=== PATIENT | male | born 2000 | race Caucasian/White ===

== ENCOUNTER 2018-05-05 04:23 | Emergency (ER) | payer OTHER, SELFPAY ==
[2018-05-05 04:24] VITALS: BP 177/63; PULSE 68; RESP 16; TEMP 36.8; O2SAT 100; BMI 24.8
--- NOTE | 2018-05-05 04:44 | CT_ITS ---
STUDY: CT ABDOMEN AND PELVIS WITH CONTRAST REASON FOR EXAM: Male, 17 years old. Lower abdominal pain RADIATION DOSAGE (If Supplied By Facility): CTDIvol = ( 9.48 ) mGy, DLP = ( 458.48 ) mGycm TECHNIQUE: Transaxial images were obtained from the dome of the diaphragm to the symphysis pubis without oral contrast. 100CC ml of Isovue 300 contrast was administered. Sagittal and coronal images were reconstructed. Individualized dose optimization techniques were used for this CT. COMPARISON: None. FINDINGS: The lung bases are clear. The liver is normal. No dilated intrahepatic biliary radicles. The gallbladder is normal with no calcifications within it. There is no pericholecystic fluid collection or streakiness The spleen is normal. The pancreas is normal. Both adrenals are normal. The kidneys are normal with no masses, calculi or hydronephrosis The stomach is normal. There is no bowel distention, acute appendicitis or diverticulitis. No constricting lesions are seen in large bowel. The abdominal wall is intact with no hernias. There is no ascites or any free intraperitoneal air. No indication of epiploic appendagitis The vascular structures in the retroperitoneum are normal. There is no retrocrural, retroperitoneal or mesenteric adenopathy. The bones and joints are normal. The urinary bladder is normal.--The prostate is normal. There is no inguinal or pelvic adenopathy. There is no inguinal hernia. . CT/Abdomen/Pelvis WITH Contrast IMPRESSION: No acute findings in the abdomen or pelvis. Specifically there is no acute appendicitis or diverticulitis Electronically Signed: Donald Salamanca MD at 7:15 EST Tel , Service support ,
[2018-05-05] MEDS: Ondansetron 4 MG/2 ML Vial IV (04:52)
[2018-05-05] MEDS: Ketorolac 30 MG/ML Syringe IV (04:53)
[2018-05-05 04:56] LABS: Absolute Lymphocyte Count 2.08 X10^3/ul (0.83-4.51); Absolute Neutrophil Count 5.9 X10^3/uL (2.0-7.7); Basophil# 0.05 X10^3/uL; Basophil% 0.6 % (0-1); Eosinophil# 0.03 X10^3/uL; Eosinophils% 0.4 % (0-5); Hematocrit 43.8 % (40-54); Lymphocyte # 2.08 X10^3/ul (4.0); Lymphocyte % 24.4 % (19-41); Mean Corp Hgb Conc 34.2 g/gl (32-36); Mean Corpuscular Hgb 30.2 pg (27.0-32.0); Mean Corpuscular Volume 88.3 fL (80-94); Mean Platelet Vol. 9.4 fl (6.2-12.0); Monocyte% 5.9 % (0-10); Neutrophil # 5.87 X10^3/uL (2.7-7.7); Neutrophil % 68.6 % (47-70); Platelet Count 336 K/mm3 (150-450); RBC Distribution Width CV 12.8 % (11.6-14.6); Red Blood Count 4.96 M/mm3 (4.6-6.2); White Blood Count 8.5 K/mm3 (4.4-11.0)
[2018-05-05 04:57] LABS: POSITIVE COUNT NO; POSITIVE DIFFERENTIAL NO; POSITIVE MORPHOLOGY NO
[2018-05-05 05:08] LABS: ALB/GLOB Ratio 1.3 RATIO (0.9-2.4); AST(SGOT) 28 U/L (15-37); Alanine Aminotransfer ALT/SGPT 33 U/L (16-61); Albumin, Serum 4.4 g/dL (3.2-5.0); Alkaline Phosphatase 81 U/L (45-117); Anion Gap 10 (5-15); BUN 18 mg/dL (7-18); Calcium,Total 9.4 mg/dL (8.5-10.1); Chloride 104 mmol/L (98-107); Creatinine, Serum 1.06 mg/dL (0.70-1.30); EST Glomerular Filtration Rate 95 mL/min (>60); Est Glom Filt Rate - Afr Amer 115 mL/min (>60); Estimated Creatinine Clearance 112.09 ml/min; Globulin 3.4 g/dL (2.2-4.2); Glucose 119 mg/dL (74-106); Lipase 77 U/L (73-393); Potassium 3.8 mmol/L (3.5-5.1); Protein, Total 7.8 g/dL (6.4-8.2); Sodium Level 140 mmol/L (136-145)
[2018-05-05 05:15] VITALS: BP 181/63
[2018-05-05 05:30] LABS: Red Blood Cells-Urine 0 SEEN /hpf (0-5); Squamous Epithelial Cells - UA 0 SEEN /hpf (0-5); White Blood Cells 0 SEEN /hpf (0-5)
[2018-05-05 05:50] LABS: Color, Urine Yellow (Yellow); Glucose, Dipstick Normal (Normal); Ketone-Dipstick Negative (Negative); Leukocyte Esterase-Dipstick Negative /ul (Negative); Nitrite-Dipstick Negative (Negative); Occult Blood-Urine Negative /ul (Negative); Protein-Dipstick Negative (Negative); Urine Bilirubin Dipstick Negative (Negative); Urine Clarity Clear (Clear); Urine Urobilinogen Normal (Normal)
[2018-05-05 05:55] LABS: Bacteria RARE /hpf (None Seen); Mucous, Urine 1+ /hpf (<or=2+)
--- NOTE | 2018-05-05 06:36 | ED.DCSUM_ITS ---
- ER Visit Summary Date of Service: 05/05/18 Chief Complaint: Abdominal pain History of Present Illness: The patient is a 17 M who presents with abdominal pain. It began yesterday. It initially began in the afternoon or evening. However it acutely worsened in the last 4-5 hours. He describes his pain as dull. It was initially diffuse but has become more focal near the umbilicus. He does report decreased appetite yesterday. He had a normal bowel movement in the evening. No constipation or diarrhea. He complains of nausea without vomiting. He reports subjective fever but did not check his temperature. No history of prior similar symptoms. No history of abdominal surgery. Physical Examination: Afebrile hypertensive but vitals otherwise unremarkable She does appear uncomfortable Moist mucous membranes Heart regular rate and rhythm Lungs are clear Abdomen soft with minimal mid lower abdominal tenderness no guarding no rebound Test Results: CBC CMP lipase urinalysis all normal. CT of the abdomen and pelvis is pending at the time of this dictation. Emergency Department Course and Treatment: Patient was treated here with IV fluids Toradol and Zofran. He feels much better on reevaluation and is resting comfortably. Patient signed out to the oncoming physician for follow-up on results. If CT of the abdomen is normal I do believe the patient can be discharged home. I discussed this with the patient and family as well as return precautions. Treatment Plan: [] Disposition: Pending CT results Impression: Abdominal pain This note was generated with [employer] dictation software. It may contain incorrect words, spelling, and punctuation that were not noted in review of the chart prior to signing ED Disposition - Plan for ED Patient: Chief Complaint: Abd Pain Referrals: Mg Quijano III, MD [Primary Care Provider] -
[2018-05-05 07:09] VITALS: BP 175/63; PULSE 78; RESP 16; O2SAT 98
--- NOTE | 2018-05-05 07:09 | ED.DEP ---
ED Disposition - Plan for ED Patient: Chief Complaint: Abd Pain Instructions: ED Abdominal Pain Unkn Cause Male Referrals: Mg Quijano III, MD [Primary Care Provider] -
[2018-05-05 07:42] VITALS: BP 173/85; PULSE 68; RESP 15; O2SAT 99
== END 2018-05-05 07:44 | disposition home or self-care (01) ==
LOC: ED 05:12
PROVIDERS: Emergency Provider Emergency Medicine; Family Provider Family Medicine; PCP Family Medicine
DX: R10.9 Unspecified abdominal pain (principal); R11.0 Nausea; Z72.0 Tobacco use
CPT/HCPCS: 74177; 80053; 81001; 83690; 85025; 96374; 96375; 99284; Q9967; A4216; J2405

== ENCOUNTER 2019-10-17 22:59 | Emergency (ER) | payer OTHER, SELFPAY ==
[2019-10-17 22:59] VITALS: BP 144/73; PULSE 96; RESP 16; TEMP 36.1; O2SAT 96; BMI 26.6
--- NOTE | 2019-10-17 23:41 | ED.VIS.GEN ---
History of Present Illness Chief Complaint: Laceration Informant: Patient Onset: Today Narrative: Patient sustained a laceration to the volar aspect of the right middle finger at the PIP joint. This occurred at work on a piece of metal. Unknown last tetanus. Patient notes minimal pain. Bleeding controlled at scene. He came to the emergency department at the advice of his employer wondering if he needs stitches. Past Medical History - Allergies and Home Meds Allergies/Adverse Reactions: Allergies Penicillins [PCN] Allergy (Verified 10/17/19 23:03) Anaphylaxis Primary Care Physician: [facility] [NON-STAFF] - 7 Days for suture removal Smoking Status: Current some day smoker Review of Systems General: Denies: Chills, Fever, Sweats Eyes: Denies: Visual changes - bilaterally, Diplopia ENT: Denies: Rhinorrhea, Sore throat Cardiovascular: Denies: Chest pain, Palpitations Respiratory: Denies: Dyspnea, Cough, Dyspnea on exertion Gastrointestinal: Denies: Abdominal pain, Nausea, Vomiting, Diarrhea, Melena, Hematochezia Genitourinary: Denies: Dysuria, Hematuria, Frequency Musculoskeletal: Denies: Back pain, Extremity Pain Skin: Denies: Rash, Wounds Neurological: Denies: Headache, Weakness, Numbness Physical Exam Vital Signs/Narrative: Vital Signs Temp Pulse Resp BP Pulse Ox 10/17/19 22:59 97 F L 96 16 144/73 H 96 Inital Vital Signs reviewed: Yes General: Well nourished, Well developed, No Acute Distress Head: Normocephalic, Atraumatic Eyes: Perrl, EOMI ENT: Moist mucous membranes, No rhinorrhea Neck: Supple, Nontender Cardiovascular: Regular rate, Regular rhythm, No murmurs Respiratory: No distress, CTA bilaterally, Chest nontender Abdomen: Soft, Nontender, Nondistended, Normal bowel sounds Back: Nontender, Normal Inspection Extremities: Nontender, No edema, - - There is a 1 cm linear laceration in the subcutaneous tissues of the right middle finger on the volar aspect of the PIP joint. It gapes in extension. There does not appear to be any tendon involvement upon direct tendon function of the profundus and superficialis. Skin: Normal color, No rash Neurological: Alert, Oriented x3, Cranial nerves II-XII grossly intact, Normal Strength, Normal Sensation Psychological: Normal affect, Normal Mood Diagnostic/Tx/Re-eval - Medical Decision Making 1% lidocaine was instilled into the wound locally. Is washed with Shur-Clens and explored. It was closed using a total of 3 simple erupted 5-0 Ethilon sutures. Wound care was discussed with patient and a Band-Aid was applied. Stitches will need to be removed in 7 days. Return if worsening or concerns tetanus was updated with Evelia. ED Disposition - Plan for ED Patient: Disposition: Home or Assisted Living Diagnosis: Finger laceration Instructions: ED Laceration Hand Referrals: [facility] [NON-STAFF] - 7 Days for suture removal
[2019-10-17] MEDS: Diphth,Pertuss(Acell),Tet Vac 0.5 ML Vial IM (23:49)
== END 2019-10-18 00:17 | disposition home or self-care (01) ==
LOC: ED 23:46
PROVIDERS: Emergency Provider Emergency Medicine; PCP Family Medicine
DX: S61.212A Laceration without foreign body of right middle finger without damage to nail, initial encounter (principal); W26.8XXA Contact with other sharp object(s), not elsewhere classified, initial encounter; Y93.89 Activity, other specified; Y92.89 Other specified places as the place of occurrence of the external cause; Y99.0 Civilian activity done for income or pay; Z88.0 Allergy status to penicillin; Z23 Encounter for immunization
CPT/HCPCS: 12001; 90471; 90715; 99283

== ENCOUNTER 2020-07-18 10:58 | Emergency (ER) | payer OTHER, SELFPAY ==
[2020-07-18 10:59] VITALS: BP 140/85; PULSE 92; RESP 16; TEMP 36.3; O2SAT 100; BMI 28.8
--- NOTE | 2020-07-18 11:12 | CT_ITS ---
STUDY: CTA CHEST REASON FOR EXAM: Male, 19 years old. Chest pain and shortness of breath. RADIATION DOSAGE (If Supplied By Facility): CTDIvol = ( 14.96 ) mGy, DLP = ( 478.74 ) mGycm TECHNIQUE: The examination was performed with the intravenous administration of IV 100mL Isovue-370. Post-processing of the angiographic images was performed, with multiplanar reformation and 3D reconstruction. Individualized dose optimization techniques were used for this CT. COMPARISON: None. FINDINGS: Normal enhancement of the main pulmonary artery and right and left pulmonary arteries. There is limited evaluation of the bilateral peripheral pulmonary arteries. There is no demonstrated pulmonary embolism. Normal thoracic aorta and visualized great vessels. There is no demonstrated aortic dissection. Normal heart and pericardium. Normal mediastinum. Normal hilar regions. Normal visualized trachea and bronchi. The lungs are well expanded. Residual lucency in the superior segment of the left lower lobe with somewhat decreased perfusion could be due to focal hyperinflation. No demonstrated central pulmonary embolism. Normal pleura. Normal chest wall structures. Unremarkable osseous structures. Normal visualized upper abdomen. CT/CTA Chest W/WO Contrast IMPRESSION: 1. No evidence of pulmonary masses or aortic dissection. 2. No mass, adenopathy or focal acute infiltrate. 3. Relative lucency in the superior segment of the right lower lobe with areas of decreased perfusion could be due to hyperinflation. Follow-up exam might be helpful. Electronically Signed: Dontae Lawson MD at 12:10 EDT Tel , Service support ,
--- NOTE | 2020-07-18 11:12 | EKG12_ITS ---
Test Reason : CP Blood Pressure : / mmHG Vent. Rate : 084 BPM Atrial Rate : 084 BPM P-R Int : 142 ms QRS Dur : 082 ms QT Int : 336 ms P-R-T Axes : 057 025 035 degrees QTc Int : 397 ms Normal sinus rhythm with sinus arrhythmia Normal ECG Confirmed by ARTURO MCDOWELL, FAITH ([id number]), publications editor LAURYN MONROE ([id number]) on 07/21/2020 8:52:23 AM Referred By: JIM Confirmed By:FAITH MORRIS MD
[2020-07-18 11:13] VITALS: BP 161/74; PULSE 76; RESP 16; O2SAT 100
--- NOTE | 2020-07-18 11:15 | ED.DCSUM_ITS ---
- ER Visit Summary Date of Service: 07/18/20 Chief Complaint: Chest pain History of Present Illness: The patient is a 19 M presenting with chest pain. Patient states this has been waxing and waning for the past several days but is worse with deep inspiration. He states he bench pressed on Monday and this pain started following that. He does not recall a specific injury with this. He denies shortness of breath or cough. Denies fever. He recovered from Covid 2 months ago, he has no other PE/DVT risk factors. Denies other complaints. Physical Examination: Vitals are stable. Patient is afebrile. Alert no acute distress. HEENT exam is unremarkable. Neck is supple. Lungs are clear and equal bilaterally. Chest is nontender Heart is regular rate and rhythm. Abdomen is soft nontender nondistended. Extremities are unremarkable. Skin is warm and dry. No focal neurologic deficit. Remainder of exam is unremarkable. Emergency Department Course and Treatment: EKG is sinus rhythm rate of 84 with no acute ischemic changes. CBC, chemistries unremarkable. Troponin is negative. CTA chest shows no evidence of pulmonary masses or aortic dissection. No mass, adenopathy or focal acute infiltrate. Relative lucency in the superior segment of the right lower lobe with areas of decreased perfusion could be due to hyperinflation. On reevaluation, patient is resting comfortably. He states the pain does come on in different positions with bending and moving his arm. I feel this is likely a chest wall strain. He is advised signs and symptoms for which to return to the ED. Advised to use NSAIDs. Advised to follow up with primary care physician. Disposition: Discharge home Impression: Chest wall strain This note was generated with [employer] dictation software. It may contain incorrect words, spelling, and punctuation that were not noted in review of the chart prior to signing ED Disposition - Plan for ED Patient: Instructions: ED Strain Chest Wall Referrals: Mg Quijano III, MD [Primary Care Provider] -
[2020-07-18 11:30] VITALS: BP 166/82; PULSE 93; RESP 16; O2SAT 100
[2020-07-18 11:35] LABS: Basophil# 0.04 X10^3/uL; Basophil% 0.8 % (0-1); Eosinophil# 0.09 X10^3/uL; Eosinophils% 1.8 % (0-5); Hematocrit 44.8 % (40-54); Hemoglobin 15.3 g/dL (13.0-16.5); Lymphocyte % 31.2 % (19-41); Mean Corp Hgb Conc 34.2 g/dL (32-36); Mean Corpuscular Hgb 30.1 pg (27.0-32.0); Mean Corpuscular Volume 88.2 fL (80-94); Mean Platelet Vol. 9.5 fl (6.2-12.0); Monocyte# 0.43 X10^3/uL; Monocyte% 8.4 % (0-10); NRBC Flagged by Analyzer 0 % (0-5); Neutrophil # 2.95 X10^3/uL (2.7-7.7); Neutrophil % 57.4 % (47-70); Platelet Count 313 K/mm3 (150-450); RBC Distribution Width CV 12.7 % (11.6-14.6); RBC Distribution Width SD 41.3 fl (35.1-43.9); Red Blood Count 5.08 M/mm3 (4.6-6.2); White Blood Count 5.1 K/mm3 (4.4-11.0)
[2020-07-18 11:54] LABS: Anion Gap 4 (5-15); BUN 15 mg/dL (7-18); BUN/Creat Ratio 13.2 RATIO (10-20); Calcium,Total 9.5 mg/dL (8.5-10.1); Chloride 106 mmol/L (98-107); Creatinine, Serum 1.14 mg/dL (0.70-1.30); EST Glomerular Filtration Rate 85 mL/min (>60); Est Glom Filt Rate - Afr Amer 103 mL/min (>60); Estimated Creatinine Clearance 99.17 ml/min; Glucose 88 mg/dL (74-106); Potassium 4.2 mmol/L (3.5-5.1); Sodium Level 139 mmol/L (136-145)
--- NOTE | 2020-07-18 13:01 | ED.DEP ---
ED Disposition - Plan for ED Patient: Instructions: ED Strain Chest Wall Referrals: Mg Quijano III, MD [Primary Care Provider] -
[2020-07-18 13:11] VITALS: BP 143/100; PULSE 69; RESP 20; O2SAT 97
== END 2020-07-18 13:11 | disposition home or self-care (01) ==
PROVIDERS: Emergency Provider Emergency Medicine; PCP Family Medicine
DX: S29.011A Strain of muscle and tendon of front wall of thorax, initial encounter (principal); Z86.16 Personal history of COVID-19; X50.0XXA Overexertion from strenuous movement or load, initial encounter; Y93.B9 Activity, other involving muscle strengthening exercises; Y92.9 Unspecified place or not applicable; Y99.9 Unspecified external cause status
CPT/HCPCS: 71275; 80048; 84484; 85025; 93005; 99284; Q9967; A4216